=== PATIENT | female | born 1990 | race Caucasian/White ===

== ENCOUNTER → 2022-11-09 | Outpatient (CLI) | payer MEDICAID, SELFPAY ==
[2022-11-16 19:39] LABS: HPV APTIMA, High Risk Negative (Negative)
== END | disposition home or self-care (01) ==
LOC: LABSPEC 16:09
PROVIDERS: Visit Provider Obstetrics & Gynecology
DX: Z12.4 Encounter for screening for malignant neoplasm of cervix (principal)
CPT/HCPCS: 87624; 88175; G0145

== ENCOUNTER → 2022-11-10 | Outpatient (CLI) | payer MEDICAID, SELFPAY ==
[2022-11-10 10:29] LABS: Hemoglobin A1c 5.7 % (3.8-5.6)
[2022-11-10 10:32] LABS: Cholesterol 175 mg/dL (200); Estradiol 32.5 pg/mL; Follicle Stimulating Hormone 8.6 mIU/mL; Glucose 88 mg/dL (74-106); High Density Lipoprotein 56 mg/dL; Prolactin 4.1 ng/mL; Thyroid Stim Hormone (TSH) 0.79 uIU/mL (0.358-3.74); Triglycerides 80 mg/dL; Very Low Density Lipoprotein 16 mg/dL (5-40)
[2022-11-10 10:38] LABS: Vitamin D,25 Hydroxy 26.3 ng/mL
[2022-11-10 10:58] LABS: NATERA MAILED SPECIMEN
[2022-11-14 11:09] LABS: Testosterone, Free 0.77 ng/dL (0.10-0.85); Testosterone, Total 35 ng/dL (8-60)
== END | disposition home or self-care (01) ==
PROVIDERS: Referring Provider Obstetrics & Gynecology; Visit Provider Obstetrics & Gynecology
DX: E28.2 Polycystic ovarian syndrome (principal)
CPT/HCPCS: 36415; 80061; 82306; 82627; 82670; 82947; 83001; 83036; 83498; 84146; 84402; 84403; 84443; 82626

== ENCOUNTER → 2022-12-05 | Outpatient (CLI) | payer MEDICAID, SELFPAY ==
[2022-12-05 12:24] LABS: Absolute Lymphocyte Count 2.17 X10^3/uL (0.83-4.51); Absolute Neutrophil Count 4.7 X10^3/uL (2.0-7.7); Basophil# 0.06 X10^3/uL; Basophil% 0.8 % (0-1); Eosinophils% 1.3 % (0-5); Hematocrit 41.9 % (37-47); Hemoglobin 12.5 g/dL (12.0-15.0); Lymphocyte # 2.17 X10^3/ul (0.83-4.51); Lymphocyte % 27.6 % (19-41); Mean Corp Hgb Conc 29.8 g/dL (32-36); Mean Corpuscular Hgb 25.5 pg (27.0-32.0); Mean Corpuscular Volume 85.5 fL (81-99); Mean Platelet Vol. 9.2 fl (6.2-12.0); Monocyte# 0.65 X10^3/uL; Monocyte% 8.3 % (0-10); NRBC Flagged by Analyzer 0 % (0-5); Neutrophil # 4.74 X10^3/uL (2.7-7.7); Neutrophil % 60.2 % (47-70); Platelet Count 389 K/mm3 (150-450); RBC Distribution Width CV 14.6 % (11.6-14.6); RBC Distribution Width SD 46.2 fl (35.1-43.9); White Blood Count 7.9 K/mm3 (4.4-11.0)
== END | disposition home or self-care (01) ==
LOC: BIMLAB 10:22
PROVIDERS: PCP Internal Medicine; Referring Provider Internal Medicine; Visit Provider Internal Medicine
DX: F32.A Depression, unspecified (principal)
CPT/HCPCS: 36415; 82306; 85025

== ENCOUNTER 2023-03-14 21:03 | Emergency (ER) | payer MEDICAID, SELFPAY ==
[2023-03-14 21:03] VITALS: BP 155/84; PULSE 105; RESP 15; TEMP 37.1; O2SAT 99
[2023-03-14 21:16] VITALS: BMI 45.7
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
== END 2023-03-14 21:58 | disposition home or self-care (01) ==
LOC: ED 21:29
PROVIDERS: Emergency Provider Emergency Medicine; PCP Internal Medicine; Visit Provider Emergency Medicine
DX: S16.1XXA Strain of muscle, fascia and tendon at neck level, initial encounter (principal); S29.019A Strain of muscle and tendon of unspecified wall of thorax, initial encounter; Y92.410 Unspecified street and highway as the place of occurrence of the external cause; V89.0XXA Person injured in unspecified motor-vehicle accident, nontraffic, initial encounter; Z79.3 Long term (current) use of hormonal contraceptives; J45.909 Unspecified asthma, uncomplicated; F41.8 Other specified anxiety disorders; Z79.899 Other long term (current) drug therapy; R73.03 Prediabetes; Z79.84 Long term (current) use of oral hypoglycemic drugs
CPT/HCPCS: 99282

== ENCOUNTER 2023-09-03 11:43 | Outpatient (RCR) | payer MEDICAID, SELFPAY ==
[2023-09-03 12:09] LABS: Hematocrit 37.1 % (37-47); Mean Corp Hgb Conc 29.6 g/dL (32-36); Mean Corpuscular Hgb 23.1 pg (27.0-32.0); Mean Corpuscular Volume 77.9 fL (81-99); Mean Platelet Vol. 8.9 fl (6.2-12.0); Platelet Count 392 K/mm3 (150-450); RBC Distribution Width CV 16.6 % (11.6-14.6); RBC Distribution Width SD 47.1 fl (35.1-43.9); Red Blood Count 4.76 M/mm3 (4.2-5.4); White Blood Count 8.3 K/mm3 (4.4-11.0)
[2023-09-03 12:17] LABS: AST(SGOT) 13 U/L (15-37); Alanine Aminotransfer ALT/SGPT 22 U/L (13-56); Creatinine, Serum 0.61 mg/dL (0.55-1.02); EST Glomerular Filtration Rate 119 mL/min (>60); Est Glom Filt Rate - Afr Amer 144 mL/min (>60)
== END 2023-09-13 23:59 ==
LOC: PAVLAB 11:43
PROVIDERS: PCP Internal Medicine; Referring Provider Internal Medicine Rheumatology; Visit Provider Internal Medicine Rheumatology
DX: Z79.899 Other long term (current) drug therapy (principal)
CPT/HCPCS: 36415; 82565; 84450; 84460; 85027

== ENCOUNTER 2024-01-14 09:36 | Outpatient (RCR) | payer MEDICAID, SELFPAY ==
[2024-01-14 09:50] LABS: Hemoglobin 11.1 g/dL (12.0-15.0); Mean Corpuscular Hgb 23.2 pg (27.0-32.0); Mean Corpuscular Volume 77.2 fL (81-99); Mean Platelet Vol. 8.8 fl (6.2-12.0); Platelet Count 385 K/mm3 (150-450); RBC Distribution Width CV 16.4 % (11.6-14.6); RBC Distribution Width SD 46.3 fl (35.1-43.9); Red Blood Count 4.79 M/mm3 (4.2-5.4); White Blood Count 6.6 K/mm3 (4.4-11.0)
[2024-01-14 10:17] LABS: AST(SGOT) 12 U/L (15-37); Alanine Aminotransfer ALT/SGPT 20 U/L (13-56); Creatinine, Serum 0.58 mg/dL (0.55-1.02); EST Glomerular Filtration Rate 125 mL/min (>60); Est Glom Filt Rate - Afr Amer 152 mL/min (>60)
[2024-01-14 11:11] LABS: Hemoglobin A1c 5.9 % (3.8-5.6)
== END 2024-02-12 23:59 ==
LOC: PAVLAB 09:36
PROVIDERS: Nurse Practitioner Family; PCP Internal Medicine; Referring Provider Internal Medicine Rheumatology; Visit Provider Internal Medicine Rheumatology
DX: Z79.899 Other long term (current) drug therapy (principal)
CPT/HCPCS: 36415; 82565; 83036; 84450; 84460; 85027